=== PATIENT | female | born 1965 | race African-American/Black ===

== ENCOUNTER 2018-07-06 23:47 | Inpatient (IN) | payer MEDICAID ==
[2018-07-06] MEDS ORDERED: NS 1,000 ML IV ONE (23:57)
--- NOTE | 2018-07-07 | EDPHY ---
H & P Stated Complaint: CP after llifting heavy object earlier Time Seen by Provider: 07/06/18 23:58 HPI/ROS: HPI CHIEF COMPLAINT: Chest pain. HISTORY OF PRESENT ILLNESS: 53-year-old female, arrives to the emergency room stating she is having sharp stabbing chest pain it is in the center of her chest nonradiating. She states that she had this episode last week. However went away on its own. She is currently homeless staying at a local homeless long term she developed chest pain around 2:00 a.m. This afternoon. It comes and goes describes sharp stabbing center of her chest nonradiating. She states started after she lifted a box out of her storage unit today. She denies any cardiovascular history, denies any stress testing recently. Denies shortness of breath.. Patient did receive nitroglycerin and full-dose aspirin prior to arrival by EMS this did help with her chest pain. Past Medical History: Denies significant medical history Past Surgical History: Denies significant surgical history Social History: homeless, denies drugs alcohol tobacco. Family History: Noncontributory ROS REVIEW OF SYSTEMS: 10 Systems were reviewed and negative with the exception of the elements mentioned in the history of present illness. Exam Constitutional triage nursing summary reviewed, vital signs reviewed, awake/ alert. Eyes normal conjunctivae and sclera, EOMI, PERRLA. HENT normal inspection, atraumatic, moist mucus membranes, no epistaxis, neck supple/ no meningismus, no raccoon eyes. Respiratory clear to auscultation bilaterally, normal breath sounds, no respiratory distress, no wheezing. Cardiovascular rate normal, regular rhythm, no murmur, no edema, distal pulses normal. Gastrointestinal soft, non-tender, no rebound, no guarding, normal bowel sounds, no distension, no pulsatile mass. Genitourinary no CVA tenderness. Musculoskeletal no midline vertebral tenderness, full range of motion, no calf swelling, no tenderness of extremities, no meningismus, good pulses, neurovascularly intact. Skin pink, warm, & dry, no rash, skin atraumatic. Neurologic awake, alert and oriented x 3, AAOx3, moves all 4 extremities equally, motor intact, sensory intact, CN II-XII intact, normal cerebellar, normal vision, normal speech. Psychiatric normal mood/affect. Heme/Lymph/Immune no lymphadenopathy. Differential Diagnosis: Differential diagnosis includes but is not limited to: ACS, atypical chest pain, pneumothorax, pneumonia, pulmonary embolism, aortic dissection, congestive heart failure, tumor, musculoskeletal pain, esophageal pain, GERD, peptic ulcer disease, pancreatitis Medical Decision Making: Plan for this patient IV establishment upward bound director , troponin, EKG, rule out acute coronary syndrome, chest x-ray, D-dimer, drug screen and re-evaluate. Re-evaluation: Troponin 0.00 EKG: Time of EKG 2358, sinus rhythm rate of 57 no signs of acute ischemia nonischemic EKG. Chest x-ray one view negative for acute cardiopulmonary disease. Patient's troponin noted be negative Patient's D-dimer noted to be negative 1:32 a.m. re-evaluation she is chest pain-free after nitroglycerin. Charter received full-dose aspirin. Plan for admission to the hospital for further cardiovascular risk evaluation and chest pain evaluation. Dr. Gonzalez agrees to admit. Source: Patient, EMS - Personal History LMP (Females 10-55): Irregular Current Tetanus/Diphtheria Vaccine: Yes Current Tetanus Diphtheria and Acellular Pertussis (TDAP): Yes - Medical/Surgical History Hx Asthma: No Hx Chronic Respiratory Disease: No Hx Diabetes: No Hx Cardiac Disease: No Hx Renal Disease: No Hx Cirrhosis: No Hx Alcoholism: No Hx HIV/AIDS: No Hx Splenectomy or Spleen Trauma: No Other PMH: denies - Social History Smoking Status: Never smoked Constitutional: Initial Vital Signs Temperature (C) 36.7 C 07/06/18 23:54 Heart Rate 65 07/06/18 23:54 Respiratory Rate 16 07/06/18 23:54 Blood Pressure 109/69 07/06/18 23:54 O2 Sat (%) 98 07/06/18 23:54 O2 Delivery Mode Room Air Allergies/Adverse Reactions: morphine Allergy (Verified 07/07/18 08:21) Hives Home Medications: Medication Instructions Recorded Albuterol [Proventil Inhaler HFA 1 - 2 puffs IH Q4H PRN 07/07/18 (*)] Herbals/Supplements -Info Only 1 ea PO DAILY 07/07/18 Ibuprofen [Motrin (*)] 200 mg PO DAILY PRN 07/07/18 Multivitamins [Multivitamin (*)] 1 each PO DAILY 07/07/18 Medical Decision Making - Data Points Laboratory Results: Laboratory Results 07/07/18 00:00 07/07/18 00:00 Medications Given: Acetaminophen (Tylenol) 650 mg PO Q4HRS PRN PRN Reason: Pain, Mild/Fever, Can Take PO Stop: 01/03/19 01:50 Last Admin: 07/07/18 20:36 Dose: 650 mg Discontinued Medications Sodium Chloride (Ns) 1,000 mls @ 0 mls/hr IV EDNOW ONE; Wide Open PRN Reason: Protocol Stop: 07/06/18 23:58 Last Admin: 07/07/18 00:01 Dose: 1,000 mls Sodium Chloride (Ns) 1,000 mls @ 75 mls/hr IV CONT IRENE Stop: 07/07/18 15:19 Last Admin: 07/07/18 02:58 Dose: 1,000 mls Sodium Chloride (Ns) 500 mls @ 0 mls/hr IV ONCE ONE PRN Reason: Wide Open Stop: 07/07/18 20:12 Last Admin: 07/07/18 20:30 Dose: 500 mls Nitroglycerin (Nitrostat) 0.4 mg SL EDNOW ONE Stop: 07/07/18 00:28 Last Admin: 07/07/18 00:36 Dose: 0.4 mg Point of Care Test Results: Chemistry 07/07/18 00:00 POC Troponin I 0.00 ng/mL ng/mL (0.00-0.08) Departure - Departure Disposition: [facility] Inpatient Acute Clinical Impression: Chest pain Qualifiers: Chest pain type: unspecified Qualified Code(s): R07.9 - Chest pain, unspecified Condition: Fair
[2018-07-07 00:09] LABS: PLATELET COUNT 255 10^3/uL (150-400)
[2018-07-07 00:19] LABS: INR 0.94 (0.83-1.16); PROTIME(PATIENT) 12.2 SEC (12.0-15.0)
[2018-07-07] MEDS ORDERED: NITROGLYCERIN 0.4 MG BTL SL ONE (00:27)
[2018-07-07] MEDS ORDERED: ONDANSETRON 4 MG/2 ML VIAL IVP PRN (01:51)
[2018-07-07] MEDS ORDERED: ONDANSETRON DISINTEGRATING 4 MG TAB PO PRN (01:51)
[2018-07-07] MEDS ORDERED: LORazepam 0.5 MG TAB PO PRN (01:51)
[2018-07-07] MEDS ORDERED: NITROGLYCERIN 0.4 MG BTL SL PRN (01:56)
[2018-07-07] MEDS ORDERED: NS 1,000 ML IV SCH (02:00)
[2018-07-07] MEDS: ACETAMINOPHEN 325 MG TAB PO PRN ×4 (02:58→20:36)
--- NOTE | 2018-07-07 04:06 | GHP ---
[f rep st] HISTORY AND PHYSICAL DATE OF ADMISSION: 07/07/2018 PRIMARY CARE PHYSICIAN: Patient without PCP. SOURCE: Patient provides history, appears reliable. EMR was reviewed and case discussed with ED provider. CHIEF COMPLAINT: Chest pain. HISTORY OF PRESENT ILLNESS: A very pleasant 53-year-old female with no significant chronic medical history, who presented to the emergency department today with complaints of substernal chest pain. The patient has been experiencing exertion-associated chest pain over the past week intermittently. It usually goes away with rest. Onset of symptoms is usually occurring when patient is trying to lift heavy objects out of her storage facility. Patient recently moved from [place] to [place] in the past year, and 8 months ago moved to [place]. Cost of living has been more expensive and patient who was previously working in [employer] industry. Has currently been staying in shelters for the past several months. The patient reports associated shortness of breath. She, last week, had episodes of lower extremity edema, which have resolved. She reports that she becomes slightly sweaty, but not dripping sweat with symptom onset and some mild nausea. She has been experiencing some intermittent mid abdominal discomfort intermittently. No fevers or chills. The patient also reports that she has had multiple family member losses here in the past month and has been depressed and grieving. She had started to take a multivitamin, but also started [place] Wort. Approximately at 0200 this morning, the patient was lying on bed and developed substernal chest pain that was sharp, stabbing-type pain. She also experienced some burning-type sensations substernally. Denies any history of reflux. For her worsening symptoms that were occurring at rest, the patient came to the emergency department for further evaluation. REVIEW OF SYSTEMS: GENERAL: No fevers, chills. CV: See HPI. RESPIRATORY: Some shortness of breath with symptoms. No cough, but runny nose. ABDOMEN: Some nausea associated with chest pain. No diarrhea. No vomiting. : No dysuria or hematuria. PSYCH: As noted above. No SI or HI. Remainder of 10 systems reviewed and negative except as noted above. ALLERGIES: Morphine, patient develops hives. She does report that she is able to tolerate all other opiates. HOME MEDICATIONS: One-A-Day multivitamin and [place] Wort daily. PAST MEDICAL HISTORY: Patient denies, but recent depressed mood related to grieving. PAST SURGICAL HISTORY: Patient denies. FAMILY HISTORY: Mother with CHF that developed in her 60s. SOCIAL HISTORY: Patient currently homeless, staying at [facility]. Denies any tobacco, drugs, or alcohol use. CODE STATUS: Full. PHYSICAL EXAMINATION: VITAL SIGNS: Upon arrival to the emergency department, blood pressure is 109/69, heart rate 65, respiratory rate 16, O2 saturation is 98% on room air, temperature 36.7. Blood pressure currently 93/51, heart rate 58, O2 saturation 99% on room air, temperature of 36.6, respiratory rate 15. GENERAL: No acute distress, pleasant adult female, is resting quietly on bed. HEAD: Normocephalic, atraumatic. EYES: Extraocular muscles grossly intact. Pupils equal, round, slightly decreased reactivity to light bilaterally, but symmetric. No scleral icterus or conjunctival injection. ENT: Mucous membranes appear dry. No oropharyngeal erythema or exudates. No rhinorrhea. NECK: Supple. Trachea midline. Slight prominence of the right thyroid. No nodules palpated. CV: Regular rate and rhythm. Slightly bradycardic. No murmurs, rubs, or gallops appreciated. RESPIRATORY: Lungs are clear to auscultation bilaterally. No wheezes, rales, or rhonchi. ABDOMEN: Positive bowel sounds, soft, minimal tenderness to palpation in the mid abdomen. No guarding or rebound. : No suprapubic tenderness to palpation. No Lopez catheter in place. EXTREMITIES: Patient without any cyanosis, clubbing, or edema. 2+ pedal pulses bilaterally and symmetric. NEURO: Grossly nonfocal. Moves all extremities. Sits up independently. MUSCULOSKELETAL: Moves all extremities. Strength intact. Grossly normal. PSYCH: Patient is very pleasant and cooperative. Affect appropriate for stated mood. She does become slightly tearful when discussing her mother recently passing and loss of multiple family members. The patient denies any SI or HI. Thought process, content, and questions are otherwise appropriate. The patient is a little bit anxious and concerned to evaluate for potential cardiac disease. LABORATORY STUDIES: WBC 6.04, H and H of 12.0 and 36.5, MCV of 83.9, platelet count is 255, neutrophil percent 33.9%, no bands. PT 12.2, INR 0.94, PTT is 26.6. D-dimer 0.49. Sodium is 139, potassium is 4.1, chloride is 102, CO2 is 25, anion gap of 12, BUN is 14, creatinine 0.7, GFR greater than 60, glucose 80. Calcium is 9.7, magnesium is 1.7, total bilirubin 0.3, ALT is 28, AST is 21 , alkaline phosphatase 87. Troponin is negative (POC) Btnp is 40, total protein 7.0, albumin is 3.9, lipase is 110. Beta HCG is negative. EKG, reviewed myself, no comparison EKG is available, showing normal sinus rhythm in the 50s, with ST flattening in lead 3, otherwise normal EKG. Less than [address] change in V5, V6. QTc is 397. Chest x-ray: Image reviewed myself. Report is still pending. No acute cardiopulmonary process is appreciated. ASSESSMENT AND PLAN: Pleasant 53-year-old female with no significant past medical history, presents to emergency department with exertional chest pain. 1. Chest pain. Differential diagnosis including ACS, although patient's HEART score is 2 versus reflux versus musculoskeletal versus anxiety and depression. We will repeat troponin in the morning. Check TSH. Check lipid panel. Discussed with the patient overall her low risk factors for heart disease; however, she was responsive to aspirin and nitroglycerin x2 in the emergency department with resolution of her chest pain. The patient reports that she feels unwell and that something is wrong. Discussed with the patient that we will plan to repeat a troponin and if negative, anticipate completing a stress test, to which she is amenable. Currently, patient denying any reflux-type symptoms. No shortness of breath. She does appear calm and cooperative at this time. 2. Depressed mood, likely secondary to grief. Patient currently on [place] Wort. We will hold supplementation at this time. 3. Anemia. Baseline unknown. Patient without any evidence of active bleeding. Should follow up with her primary provider. Consider additional evaluation and routine screenings. 4. Homelessness. Social Work consult in the morning. 5. Hypotension. Minimally decreased blood pressures. Patient reports that she generally runs a little bit low to low normal. She is currently asymptomatic. She does appear dehydrated clinically, and she does note that she has not had any significant oral intake today. We will plan to provide patient with a little bit of IV fluid hydration overnight. We will give her a snack and then make her n.p.o. Electrolytes appear adequate. We will monitor p.r.n. Accu-Cheks, as her initial blood sugar upon arrival was 80. 6. Prophylaxis. Sequential compression devices, holding anticoagulation and anticipating short hospital stay. Encourage mobilization. 7. Code status is full. DISPOSITION: Patient admitted to observation status on PCU floor for close cardiac monitoring and additional evaluation of her chest pain. /[id number]/MODL MTDD
[2018-07-07] MEDS ORDERED: REGADENOSON 0.4 MG/5 ML SYR IVP ONE (11:26)
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
--- NOTE | 2018-07-07 12:52 | CPR ---
[f rep st] NONINVASIVE CARDIAC PROCEDURE REPORT SUPERVISING [employer] MANAGER: Dr. Michael. INDICATION FOR TESTING: Chest pressure. PRE: After obtaining informed consent, the patient was placed on electrocardiogram, initial EKG show ing sinus bradycardia, normal axis, with no significant ST or T-wave abnormalities. Initial blood pr essure 98/70, saturation 99%. The patient reports no chest pain, pressure, or symptoms suggesting of ischemia. STRESS: The patient was placed on the exercise treadmill, following standard Arturo protocol the foll owing findings: 1. The patient exercised for 6 minutes and 21 seconds. 2. The patient obtained a heart rate of 120 beats per minute, which was 71% of maximum predicted hea rt rate. 3. She exercised for 7.[address] shift at peak exercise suggesting of ischemia. 5. The patient had no chest pain, but significant shortness of breath with exertion. 6. No arrhythmias noted. 7. The patient maintained an SpO2 greater than 90% throughout testing. 8. BP response: Rest 98/70. Peak heart rate: 128/70. 9. Testing was stopped due to maximum effort. 10. Nondiagnostic exercise treadmill due to patient not meeting minimal of 85% MPHR. 11. Lexiscan injection: Due to the patient unable to meet maximum predicted heart rate on exercise treadmill, due to shortness of breath and meeting max exertional effort, Lexiscan injection was done. Within 1 minute of injection, the patient did become significantly tachycardic with noted mild flat tened T-waves in lateral leads; blood pressure did drop to 106/68. Within 5 minutes post injection, patient reporting all symptoms subsided. EKG returned back to baseline. The patient maintained a sa t greater than 90%. Final blood pressure of 114/60. The patient's vital signs were stable. She was taken to Nuclear Medicine for post-stress imaging. IMPRESSION: A 53-year-old female being evaluated for potential cardiac ischemia undergo exercise chelsie admill MPI study. Patient was unable to meet 85% maximum predicted heart rate, making nondiagnostic exercise treadmill. Testing was switched over Lexiscan. The patient did report some mild chest pres sure with initial injection, but subsided within 2 minutes. Mild flattening of T-waves in lateral le ads post injection, which returned back to baseline. Vital signs are stable. She is going to [email or web address] for post-stress imaging. /[id number]/MODL
--- NOTE | 2018-07-07 13:18 | HOSPPROG ---
Hospitalist Progress Note Assessment/Plan: The patient is a 53-year-old female with PMH anxiety who was admitted for chest pain. ASSESSMENT/PLAN: Acute chest pain, resolved Acute headache, 2/2 nuclear medicine from stress test AE to stress test NM Acute stress reaction with anxiety/depressed mood Anemia Homelessness -acetaminophen prn BURNS. -Monitor o/n since pt had AE to stress test. -Give NS 500cc bolus. -Continue CP protocol. -Monitor tele. VTE prophylaxis: SCDs, ambulating Code Status: Full code Status: obs Disposition: medtele with discharge anticipated tomorrow ____ SUBJECTIVE: Today the patient was seen after stress test, complaining of a severe headache. She felt very sick after receiving the nuclear medicine infusion. She also got very short of breath during the stress test. OBJECTIVE: Physical Exam: General: The patient is a female who is alert and in no acute distress. HEENT: normocephalic, extraocular movements intact, conjunctivae clear. Mucous membranes moist. Neck: trachea midline, no visible masses. CV: +S1/S2, RRR, no MRG. Resp: unlabored, CTAB no RRW. Abd: soft and nondistended. Musculoskeletal: Normal muscle tone/bulk. Neuro: cranial nerves II - XII grossly intact. Intact gross motor and sensory function. Psych: Normal mood and normal affect. Skin: No pallor. No petechiae. Heme/lymph: No peripheral edema at bilateral ankles. Labs/Imaging/Other Tests: Personally reviewed/interpreted. Objective: Vital Signs Temp Pulse Resp BP Pulse Ox 36.9 C 67 14 103/51 L 99 07/07/18 07:22 07/07/18 07:22 07/07/18 07:22 07/07/18 07:22 07/07/18 07:22 07/06/18 07/07/18 07/08/18 05:59 05:59 05:59 Intake Total 150 Output Total 600 Balance 150 -600 PT 12.2 SEC (12.0-15.0) 07/07/18 00:00 INR 0.94 (0.83-1.16) 07/07/18 00:00 ICD10 Worksheet Patient Problems: Problems Problem Status Onset Chest pain Acute
[2018-07-07] MEDS ORDERED: NS 500 ML IV ONE (20:11)
[2018-07-08 07:54] VITALS: BP 98/55
[2018-07-08] MEDS: ACETAMINOPHEN 325 MG TAB PO PRN (09:19)
--- NOTE | 2018-07-08 11:44 | PDDCSUM ---
Discharge Summary Discharge Summary: Date of Admission: 07/07/2018 Date of Discharge: 07/08/2018 Discharge Diagnoses: Acute chest pain, resolved Acute headache, 2/2 nuclear medicine from stress test AE to stress test NM, resolved Acute stress reaction with anxiety/depressed mood Anemia Homelessness Subjective bilateral foot swelling, improved Hospital Course: Patient is a 53-year-old female with recent grief and anxiety who presented with chest pain. She had previously gone to [facility] and [facility] for the same issue, but was turned away without getting a stress test. She was told that her chest pain was from anxiety. The patient was concerned about a cardiac etiology of her stress pain. She underwent a cardiac stress test which showed no reversible ischemia. Her EKG did not suggest any cardiac ischemia. The chest pain resolved when she was in the hospital and is suspected to be associated with anxiety, particularly because the patient is under increased stress and going through bereavement for several family members. Patient complained of a reaction to the nuclear medicine and felt unwell with a severe headache after the procedure, so she was monitored overnight. Patient was complaining of bilateral foot swelling on admission, but there was no appreciable swelling on physical exam. She was recommended to have this issue addressed by her PCP in the outpatient setting if it continues to bother her. Condition: Stable Discharged to: Home (hotel) Pertinent tests/labs/imaging: See hospital course above. Medications: Please see med rec form. No new medications. Special instructions: Return to hospital for concerning/worsening symptoms ( such as fainting, severe chest pain, or difficulty breathing). Follow up: PCP in 1-2 weeks.
--- NOTE | 2018-07-08 12:37 | PDMN ---
Medical Necessity Medical necessity: Pt meets IP criteria per MD & MCG CG-GDC General Discharge Criteria; los >2 mn for ongoing monitoring of severe headache, anxiety/ depressed mood & dyspnea following stress test for chest pain; requiring further cardiac monitoring; hx homelessness; per progress note & order 07/07/18
--- NOTE | 2018-07-08 14:33 | ASMTLACE ---
LACE Length of stay for Answers: Less than 1 day current admission Acuity / Level of Answers: Yes Care: Did the patient have an inpatient admission? # of Emergency department Answers: 1-2 visits in the last 6 months Social determinants Answers: Homelessness (street, [facility]) Score: 7 Date Signed: 07/08/2018 02:31 PM Electronically Signed By:Marylu Levy RN
--- NOTE | 2018-07-08 14:37 | ASMTDCNOTE ---
Case Management Discharge Discharge Order Complete? Answers: Yes Patient to Obtain Answers: Independently Medications Transportation Arranged Answers: Other Notes: [facility] medicaid transport to coordinated entry Discharge Comments Notes: 07/08/2018 Case Management Note Met w/pt. Provided nursing home resources for [facility]. Provided health and human resources information for [facility] as well as [facility] contact info to patient. Reserved nursing home bed in [place] at pt request. Arranged for [facility] transport directly to coordinated entry in [place]. Pt stated belongings are at the [facility], pt declined return to [facility]. Per pt, pt nephew Kiran [phone] and father sent money today. Date Signed: 07/08/2018 02:35 PM Electronically Signed By:Marylu Levy RN
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
--- NOTE | 2018-07-10 08:23 | CPEKG ---
Test Reason : OPEN Blood Pressure : / mmHG Vent. Rate : 057 BPM Atrial Rate : 059 BPM P-R Int : 160 ms QRS Dur : 092 ms QT Int : 407 ms P-R-T Axes : 055 047 038 degrees QTc Int : 397 ms Sinus rhythm Confirmed by Marco Marshall ([id number]) on 07/10/2018 8:23:12 AM Referred By: Leticia Gonzalez Confirmed By:Marco Marshall
== END 2018-07-08 13:52 | disposition home or self-care (01) | DRG 203 ==
LOC: OBSVTOIN 07-07 01:55 → F2W 07-07 02:06
PROVIDERS: ADMIT Family Medicine; ATTEND Family Medicine
DX: R07.9 Chest pain, unspecified (principal); R51 Headache; T50.8X5A Adverse effect of diagnostic agents, initial encounter; F43.23 Adjustment disorder with mixed anxiety and depressed mood; D64.9 Anemia, unspecified; M79.89 Other specified soft tissue disorders; Z59.0 Homelessness
CPT/HCPCS: 80305; 84484-ER; 97116-GP; 97162-GP; A9500; J2785